=== PATIENT | female | born 1990 | race Caucasian/White ===

== ENCOUNTER → 2017-02-01 | Outpatient (CLI) | payer OTHER ==
[~2017-02-01] VITALS: Ht 162.6 cm; Wt 71.3 kg
[~2017-02-01] MED LIST: ACET50TA PO; IBUP80TA PO; STUACAP PO; TYLE167L PO
--- NOTE | 2017-02-01 13:11 | IPNPDOC ---
Text Note Date of Service The patient was seen on 02/01/17. NOTE Chantale is a 26yo with SIUP at 39w4d presenting to L&D with vaginal leakage. She doesn't feel like her water broke but unsure why she has more clear discharge- this is different than her other pregnancies. No VB, no consistent ctx, feels good FM. Vitals wnl General: WDWN, NAD, resting comfortably Abdomen: soft, NTTP, gravid SSE (Alexa as construction analyst): NEFG, negative valsalva, no pooling, swab obtained SCE 80/-2 (was /-2 two days ago in clinic) Cat I FHRT with bl 140, +accels, -decels, mod patrick Walters: rare ctx Labs: Nitrazine negative Ferning negative TAUS: elizondo IUP with cephalic presentation, ROHITH 9cm, +FCA, +FM, posterior placenta Assessment: Chantale is a 26yo with SIUP at 39w4d with NO evidence of ROM or labor. Negative pooling/valsalva/nitrazine/ferning. SCE /-2 with no regular ctx. Reassuring status with ROHITH 9cm. Plan: -Keep next clinic visit -Return precautions discussed -Increase oral hydration Dr. Alexia Joyce MD [place] MD Feb 01, 2017 13:11
[2017-02-01 13:16] VITALS: BP 116/72
== END ==
LOC: M LDO 11:48
PROVIDERS: ATTEND Obstetrics & Gynecology
DX: O47.1 False labor at or after 37 completed weeks of gestation (principal); Z3A.39 39 weeks gestation of pregnancy

== ENCOUNTER 2017-02-02 01:17 | Inpatient (IN) | payer OTHER, SELFPAY ==
[~2017-02-02] VITALS: Ht 162.6 cm; Wt 72.0 kg
[2017-02-02] VITALS (9 sets, daily range): BP systolic 105–119; BP diastolic 53–65
[~2017-02-02 01:17] MED LIST changes: -ACET50TA PO
[2017-02-02] MEDS ORDERED: AMPICILLIN SOD 2 GM in APPROPRIATE DILUENT 20 ML IV STA (02:10)
[2017-02-02] MEDS ORDERED: LACTATED RINGER'S 1000 ML IV STA (02:10)
[2017-02-02] MEDS ORDERED: LR 1,000 ML IV SCH (02:10)
--- NOTE | 2017-02-02 02:25 | HPEPDOC ---
Obstetrical History & Physical General Date of Admission 02/02/17 History of Present Illness Chantale is a 26yo with SIUP at 39w5d presenting with contractions since she was sent home earlier today after a negative ROM workup. She states ctx are regular now and painful, every 3 minutes. Had some vaginal spotting. No LOF. Feels movement. Chief Complaint: Contractions, term Information Provided By: Patient Care Care: Good Care Dating Final EDC: Feb 04, 2017 Final EDC by: LMP Antepartum Course Diagnos(e)s GBS pos Height (inches): 64 Pre- weight (lbs.): 130 Admission Weight (lbs.): 153 Change in Weight (lbs.): 23 Past Medical History Past Obstetrical History #1: Past Obstetrical History: Multigravida Date of Delivery: Dec 26, 2012 Gestation: 38 Type of Delivery: Spontaneous Vaginal Del. Sex of : Male Weight of (grams): 3500 Complications: No Past Obstetrical History #2: Past Obstetrical History: Multigravida Date of Delivery: June 25, 2014 Gestation: 38 Type of Delivery: Spontaneous Vaginal Del. Sex of : Female Weight of (grams): 3500 Complications: No HEART NURSE History: No pertinent history Past Medical History Medical History benign Surgical History: Denies/None Family History Significant Family History: No pertinent family hx Social History Marital Status: Family situation: Spouse/partner home Psychosocial History: No pertinent psych hx * Smoker: non-smoker Alcohol: Denies Drugs: denies Imunizations Tdap status: current Influenza Status: current Allergies Coded Allergies: No Known Drug Allergy (Verified Allergy, Unknown, 07/15/14) Medications Scheduled (Bharathi One 27-0.8-200 mg) 1 Cap Cap, 1 CAP PO DAILY Scheduled PRN Acetaminophen (Tylenol) 500 Mg/15 Ml Liq, 650 MG PO Q6HP PRN for PAIN Ibuprofen (Ibuprofen) 800 Mg Tab, 800 MG PO Q8HP PRN for PAIN Physical Examination Physical Examination GENERAL: Alert and oriented times three. BREAST: . ABDOMEN: Gravid and non-tender to touch. FETUS: Is vertex (VTX) by sterile vaginal examination (SVE) EXTREMITIES: No edema. Vital Signs/I&O Vital Signs Date Time Temp Pulse Resp B/P (MAP) Pulse Ox O2 Delivery O2 Flow Rate FiO2 02/02/17 01:34 99.1 77 18 110/58 (75) Pertinent Laboratoy Data Blood Type: O+ RBC Antibody Screen: Negative HIV: Negative Hepatitis B: Negative Hepatitis C: Unknown Rapid Plasma Reagin: Nonreactive Rubella: Immune Varicella: Immune Chlamydia/Gonorrhea: Negative Group B Streptococcus: Positive Quad Screen Test: Negative Glucose Tolerance Test: 79 Anatomy Ultrasound Ultrasound Date: Sep 13, 2016 Placenta Location: Posterior Normal Anatomy: Yes Placenta Previa: No Steroid Therapy Steroid Therapy: No Vaginal Examination Dilation: 6 cm Effacement: 80+% Station: -1, 0 Cervical Consistency: Soft Cervical Position: Anterior Presentation: Cephalic presentation Assessment Heart Rate (FHR): 140 Variability: Moderate Accelerations: Positive Decelerations: Variable Tocometer Contractions: Yes Frequency: regular, every 2-5 min. Duration: greater than 60 seconds Strength: palpated as moderate Assessment/Plan Assessment Chantale is a 26yo with SIUP at 39w5d in active labor with SCE 6/90/-1 and regular ctx q3min. Cephalic by SCE. Cat I-II tracing with one variable decel noted, otherwise +accels/mod patrick. GBS positive. Uncomplicated medical hx and course. Plan Admit and orient. Commercial Analyst and consent. Diet: clear liquids Group B Streptococcus (GBS) positive, IV ampicillin per protocol Labs and intravenous (IV) per unit protocol. Lactated Ringers (LR): Bolus 1000 mL, then at 125 mL/hr. Anticipate normal spontaneous delivery () Candidate for epidural MD Maria Del Carmen Levy Katrina D MD Feb 02, 2017 02:25
[2017-02-02 02:54] LABS: MEAN CORPUSCULAR HEMOGLOBIN 31.5 pg (27.0-33.0); MEAN CORPUSCULAR HGB CONC 34.1 g/dl (32.0-36.5); MEAN CORPUSCULAR VOLUME 92.4 fl (80.0-96.0); PLATELET COUNT, AUTOMATED 153 10^3/uL (150-450); RED CELL DISTRIBUTION WIDTH 12.7 % (11.5-14.5); WHITE BLOOD COUNT 7.8 10^3/uL (4.0-10.0)
[2017-02-02] MEDS ORDERED: OXYTOCIN 30 UNITS IN 0.9% NaCl 500ML IV BAG (J2590) As Ordered ONE (03:01)
[2017-02-02] MEDS ORDERED: OXYTOCIN DRIP 30 UNITS in APPROPRIATE DILUENT 1 EA IV SCH (03:41)
[2017-02-02] MEDS ORDERED: MEASLES,MUMPS,RUBELLA VACCINE INJ (MMR-II) (90707) SC SCH (03:45)
[2017-02-02] MEDS ORDERED: ACETAMINOPHEN 500 MG TAB PO PRN (03:45)
[2017-02-02] MEDS ORDERED: LIDOCAINE 1% MDV INJ 50 ML VIAL INFIL ONE (03:45)
[2017-02-02] MEDS ORDERED: DIBUCAINE 1% OINTMENT 30GM TOP PRN (03:45)
[2017-02-02] MEDS ORDERED: RHOGAM 300 MCG (1500 IU) INJ (J2790) IM SCH (03:45)
[2017-02-02] MEDS ORDERED: DOCUSATE SODIUM 100 MG CAP PO PRN (03:45)
--- NOTE | 2017-02-02 03:49 | DNPDOC ---
[facility] Delivery Note Delivery Note DATE OF DELIVERY: 02/02/17 at 0316 PREDELIVERY DIAGNOSIS: 39w5d gestation and labor. POST DELIVERY DIAGNOSIS: Delivered. PROCEDURE: Spontaneous vaginal delivery NITRIC ACID CONCENTRATOR OPERATOR: Dr. Alexia Joyce MD ANESTHESIA: 1% lidocaine for repair ESTIMATED BLOOD LOSS: 200 mL. FINDINGS: 7 pound 1 ounce female , Score 9/9, loose nuchal cord times 1 DELIVERY SUMMARY: Chantale is a 26yo [id number] s/p uncomplicated at 39w5d after presenting to L& D in active labor. She quickly progressed to C/C/+1 and began pushing. head delivered LAYNE, one loose nuchal cord noted, left anterior shoulder delivered followed immediately by posterior shoulder and corpus. Nuchal cord then reduced. vigorous with spontaneous cry, apgars 9/9, placed on maternal chest. After 1 min delayed clamping, umbilical cord was clamped x2 and cut by FOB. Cord blood obtained for MBT O positive. With uterine massage and traction on the umbilical cord, placenta delivered spontaneously and intact with centrally inserted 3 vessel cord. More uterine massage and pitocin given per protocol, fundus then firm at u-1cm with no further bleeding. Inspection of perineum and vagina revealed very small periclitoral abrasion and 1 cm right labial laceration repaired with figure of 8's using 3-0 vicryl suture after anesthetizing with 8ml of 1% lidocaine. Complete hemostasis ensured with ebl 200ml. Mom and infant in stable condition. Dr. Alexia Joyce MD [place] Chinchilla MD Feb 02, 2017 03:49
[2017-02-02] MEDS ORDERED: AMPICILLIN SOD 1 GM in APPROPRIATE DILUENT 10 ML IV SCH (07:00)
[2017-02-02] MEDS: PRENATAL VITAMINS CHEWABLE TABLET PO SCH (10:05)
[2017-02-02] MEDS: IBUPROFEN 800 MG TAB PO PRN ×2 (13:27→22:41)
[2017-02-03 06:28] VITALS: BP 100/51
--- NOTE | 2017-02-03 06:32 | IPNPDOC ---
Progress Note Date of Service The patient was seen on 02/03/17 at 06:26. Progress Note BRIEF SUMMARY OF LABOR AND DELIVERY: Patient is a 23 yo x/p at 39+ 5, female , 7 pounds 1 ounces and 3190 grams. LABS AND OTHER LABS ORDERED THIS ADMISSION: Blood type: O positive, HBsAG: NR, Rubella[immune, GC/CT-negative SUBJECTIVE: Patient reports she is comfortable. Bleeding minimal, formula- feeding, ambulating without difficulty, pain well controlled. Flatus present OBJECTIVE: PHYSICAL EXAMINATION: VITAL SIGNS: Please see below. CARDIOVASCULAR: RRR n m/r/g LUNGS: CTA BREAST EXAMINATION: no engorgement or erythema FUNDUS: Firm at U-1, nontender to massage. PERINEUM: Alize EXTREMITIES: Bilateral lower extremities, no edema, no erythema ASSESSMENT: 23-year-old status post with R labial laceration and repair. Doing well, day #1. PLAN: Education/discharge education: Discharge or plans for: today 02/03/2017 Return for fever, pain or bleeding. control plans: Discuss at 6-week PP visit Followup plans:6-week PP visit at [facility] VS, I&O, 24H, Fishbone Vital Signs/I&O Vital Signs Date Time Temp Pulse Resp B/P (MAP) Pulse Ox O2 Delivery O2 Flow Rate FiO2 02/02/17 18:00 97.8 68 18 112/64 (80) ERIC SMALLWOOD CNM Feb 03, 2017 06:32
[2017-02-03] MEDS ORDERED: ACET50TA PO (08:57)
[2017-02-03] MEDS: PRENATAL VITAMINS CHEWABLE TABLET PO SCH (09:11)
== END 2017-02-03 14:25 | disposition home or self-care (01) | DRG 560 ==
LOC: M LDO 01:17 → M LDI 02:13 → M OBS 05:30
PROVIDERS: ADMIT Obstetrics & Gynecology; ATTEND Obstetrics & Gynecology
PROC: 10E0XZZ Delivery of Products of Conception, External Approach (ICD-10-PCS; principal; 2017-02-02)
PROC: 0HQ9XZZ Repair Perineum Skin, External Approach (ICD-10-PCS; 2017-02-02)
DX: O69.82X0 Labor and delivery complicated by other cord entanglement, without compression, not applicable or unspecified (principal); Z37.0 Single live birth; Z3A.39 39 weeks gestation of pregnancy; O99.820 Streptococcus B carrier state complicating pregnancy; O70.0 First degree perineal laceration during delivery

== ENCOUNTER 2017-05-01 10:19 | Emergency (ER) | payer OTHER, SELFPAY | END 2017-05-01 11:52 | disposition home or self-care (01) | LOC: M ED 10:19 | DX: H02.843 Edema of right eye, unspecified eyelid (principal); H02.846 Edema of left eye, unspecified eyelid; T78.40XA Allergy, unspecified, initial encounter | CPT/HCPCS: 99283 ==

== ENCOUNTER 2017-07-19 12:46 | Emergency (ER) | payer OTHER, SELFPAY ==
[2017-07-19] MEDS: MUPIROCIN 2% OINT 22 GM TUBE TOP ×3 (17:45)
== END 2017-07-19 17:49 | disposition home or self-care (01) ==
LOC: M ED 12:46
DX: L30.9 Dermatitis, unspecified (principal)
CPT/HCPCS: 99283